=== PATIENT | female | born 1995 | race American Indian/Alaskan Native ===

== ENCOUNTER 2017-05-02 23:41 | Outpatient (CLI) | payer MEDICAID ==
[2017-05-02] MEDS ORDERED: LACTATED RINGERS 500 ML IV ONE (23:47)
[2017-05-03 00:01] VITALS: BP 138/88
== END 2017-05-03 00:20 | disposition home or self-care (01) ==
LOC: TRG 23:41
PROVIDERS: ATTEND Obstetrics & Gynecology
DX: O47.1 False labor at or after 37 completed weeks of gestation (principal); Z3A.37 37 weeks gestation of pregnancy
CPT/HCPCS: 59025; J7120

== ENCOUNTER 2017-05-15 14:54 | Outpatient (CLI) | payer SELFPAY ==
--- NOTE | 2017-05-15 17:53 | Ultrasound Report ---
FINAL REPORT EXAM: US OB LIMITED HISTORY: makenna TECHNIQUE: Grayscale and color doppler ultrasound of the fetus was performed. PRIORS: None. FINDINGS: A single, live intrauterine fetus is present in cephalic presentation with a heart rate of 141 beats per minute. The amniotic fluid index is normal at 12.6 centimeters. IMPRESSION: Amniotic fluid index of 12.6 centimeters.
--- NOTE | 2017-05-15 17:55 | Ultrasound Report ---
FINAL REPORT EXAM: US OB BPP WO NON-STRESS HISTORY: bpp TECHNIQUE: Grayscale and color doppler ultrasound of the fetus was performed for biophysical profile. PRIORS: None. FINDINGS: A single, live intrauterine fetus is present in cephalic presentation with a heart rate of 141 beats per minute. The placenta is anterior in location. The amniotic fluid index is 12.6 centimeters. Estimated gestational age based on LMP is 39 weeks and 1 day with an JOCELINE of 05/21/2017. Biophysical profile score of 8 out of 8 was noted. Scores of 2 out of 2 were given for breathing movements, movements, posterior and tone and qualitative amniotic fluid volume. IMPRESSION: Normal biophysical profile.
[2017-05-15 18:40] LABS: Hematocrit 34.3 % (30.3-42.9); Mean Corpuscular HGB Conc 32 % (30-34); Mean Corpuscular Hemoglobin 29 pg (28-32); Mean Corpuscular Volume 92 fl (79-97); Platelet Count 242 K/mm3 (140-440); Red Blood Count 3.75 M/mm3 (3.65-5.03); Red Cell Distribution Width 15.3 % (13.2-15.2)
[2017-05-15 18:44] LABS: Bacteria,Urine 4+ /HPF (Negative); Bilirubin,Urine NEG (Negative); Blood,Urine NEG (Negative); Color,Urine Yellow (Yellow); Mucus,Urine 2+ /HPF; Urobilinogen,Urine < 2.0 mg/dL (<2.0)
[2017-05-15 19:00] LABS: Alanine Aminotransferase 10 units/L (7-56); Uric Acid 4.3 mg/dL (3.5-7.6)
[2017-05-15 19:25] VITALS: BP 145/86
== END 2017-05-15 19:55 | disposition home or self-care (01) ==
LOC: TRG 14:54
PROVIDERS: ATTEND Obstetrics & Gynecology
DX: O47.1 False labor at or after 37 completed weeks of gestation (principal); Z3A.39 39 weeks gestation of pregnancy
CPT/HCPCS: 36415; 59025; 76815; 76819; 81001; 82565; 83615; 84450; 84460; 84550; 85027; 86592; 86850; 86900; 86901

== ENCOUNTER 2017-05-17 09:07 | Inpatient (IN) | payer MEDICAID, OTHER ==
--- NOTE | 2017-05-17 09:48 | Anesthesia Consultation ---
Anesthesia Consult and Med Hx Date of service: 05/17/17 - Airway Anesthetic Teeth Evaluation: Good ROM Head & Neck: Adequate Mental/Hyoid Distance: Adequate Mallampati Class: Class II Intubation Access Assessment: Probably Good - Pre-Operative Health Status ASA Pre-Surgery Classification: ASA2 Proposed Anesthetic Plan: Epidural, Spinal - Pulmonary Hx Smoking: Yes (2-3 cig/day) Hx Asthma: Yes (EXERCISE INDUCED) - Cardiovascular System Hx Hypertension: No - Central Nervous System Hx Seizures: No Hx Psychiatric Problems: No - Endocrine Hx Renal Disease: No Hx Hypothyroidism: No Hx Hyperthyroidism: No - Hematic Hx Anemia: No Hx Sickle Cell Disease: No - Other Systems Hx Alcohol Use: No
[2017-05-17] MEDS ORDERED: REGLAN IV ONE (09:49)
[2017-05-17] MEDS ORDERED: PHENERGAN PO PRN (09:49)
[2017-05-17] MEDS ORDERED: NARCAN 0.4 MG/1 ML IV PRN ×2 (09:49→12:58)
[2017-05-17] MEDS ORDERED: DILAUDID IV PRN ×2 (09:49)
[2017-05-17] MEDS ORDERED: ZOFRAN IV PRN (09:49)
[2017-05-17] MEDS ORDERED: BICITRA PO ONE (09:49)
[2017-05-17] MEDS ORDERED: PHENERGAN PR PRN (09:49)
[2017-05-17] MEDS ORDERED: PEPCID IV ONE (09:49)
[2017-05-17] MEDS ORDERED: BENADRYL IV PRN (09:49)
--- NOTE | 2017-05-17 09:49 | Anesthesia Day of Surgery ---
Anesthesia Day of Surgery - Day of Surgery Patient Examined: Yes Patient H&P Reviewed: Yes Patient is NPO: Yes
[2017-05-17] MEDS ORDERED: PITOCin/NS 20 UNIT/1000ML DRIP 20 UNITS/1,000 ML BAG IV SCH ×2 (10:00→13:00)
[2017-05-17] MEDS ORDERED: LACTATED RINGERS 1,000 ML IV SCH (10:00)
[2017-05-17] MEDS ORDERED: SODIUM CHLORIDE FLUSH SYRINGE 10 ML IV NR (10:00)
[2017-05-17 11:07] LABS: Basophils # (Auto) 0.1 K/mm3 (0.0-0.1); Basophils % (Auto) 0.4 % (0.0-1.8); Eosinophils # (Auto) 0.1 K/mm3 (0.0-0.4); Eosinophils % (Auto) 0.4 % (0.0-4.3); Hematocrit 33.7 % (30.3-42.9); Hemoglobin 10.8 gm/dl (10.1-14.3); Lymphocytes # (Auto) 1.9 K/mm3 (1.2-5.4); Lymphocytes % (Auto) 14.1 % (13.4-35.0); Mean Corpuscular HGB Conc 32 % (30-34); Mean Corpuscular Hemoglobin 29 pg (28-32); Mean Corpuscular Volume 91 fl (79-97); Monocytes % (Auto) 6.9 % (0.0-7.3); Platelet Count 238 K/mm3 (140-440); Red Cell Distribution Width 15.8 % (13.2-15.2)
[2017-05-17] MEDS ORDERED: NACL 0.9% IR ONE (11:40)
[2017-05-17] MEDS ORDERED: WATER FOR IRRIG STERILE IR ONE (11:40)
--- NOTE | 2017-05-17 11:41 | History and Physical Report ---
History of Present Illness Date of examination: 05/17/17 Date of admission: 05/17/17 09:07 Chief complaint: Repeat C Section History of present illness: Pt is a 22yo BF EDC 05/21/17; EGA 39 3/7 weeks presents for a Repeat C Section. She received late care at [facility] @ 36 weeks , and had a previous C Section. records are available and GBS is Negative. Past History Past Medical History: no pertinent history Past Surgical History: section [employer]GER History: chlamydia, herpes Social history: no significant social history, single - Obstetrical History Expected Date of Delivery: 05/21/17 Actual Gestation: 39 Week(s) 5 Day(s) : 3 Medications and Allergies Allergies Allergy/AdvReac Type Severity Reaction Status Date / Time Iodine and Iodide Containing Allergy Shortness Verified 05/17/17 09:49 Produc of Breath Shellfish Allergy Anaphylaxis Uncoded 05/17/17 09:49 Home Medications Medication Instructions Recorded Confirmed Last Taken Type Ferrous Sulfate [Feosol 325 MG tab] 325 mg PO BID #60 tablet 05/17/17 Unknown Rx HYDROcodone/APAP 5-325 [[place] 1 each PO Q6HR PRN #30 tablet 05/17/17 Unknown Rx 5/325] Ibuprofen [Motrin] 800 mg PO Q8HR PRN #30 tablet 05/17/17 Unknown Rx Vit Calc,Iron,Folic 1 each PO DAILY #30 tablet 05/17/17 Unknown Rx [ Vitamins] Active Meds: Active Medications Cefazolin Sodium (Ancef/Sterile Water 2 Gm/20 Ml) 2 gm IV PREOP NR Stop: 05/17/17 18:00 Diphenhydramine HCl (Benadryl) 12.5 mg IV Q2H PRN PRN Reason: Itching Hydromorphone HCl (Dilaudid) 0.5 mg IV Q4H PRN PRN Reason: breakthrough pain > 7/10 Hydromorphone HCl (Dilaudid) 0.5 mg IV Q15M PRN PRN Reason: Breakthrough Pain Stop: 05/17/17 23:59 Lactated Ringer's (Lactated Ringers) 1,000 mls @ 2,250 mls/hr IV PREOP NICHOLE Stop: 05/18/17 10:27 Oxytocin/Sodium Chloride (Pitocin/Ns 20 Unit/1000ml Drip) 20 units in 1,000 mls @ 0 mls/hr IV TITR NICHOLE Ketorolac Tromethamine (Toradol) 30 mg IV Q6H PRN PRN Reason: Pain, Moderate (4-6) Stop: 05/22/17 09:48 Naloxone HCl (Narcan 0.4 Mg/1 Ml) 0.2 mg IV Q2MIN PRN PRN Reason: Res Rate </= 8 or 02 SAT < 92% Ondansetron HCl (Zofran) 4 mg IV Q8H PRN PRN Reason: Nausea And Vomiting Promethazine HCl (Phenergan) 25 mg PO Q6H PRN PRN Reason: Nausea And Vomiting Promethazine HCl (Phenergan) 25 mg IN Q6H PRN PRN Reason: Nausea And Vomiting Sodium Chloride (Sodium Chloride Flush Syringe 10 Ml) 10 ml IV PRN NR Stop: 05/18/17 09:59 Review of Systems All systems: negative - Physical Exam Breasts: Positive: deferred Cardiovascular: Regular rate Lungs: Positive: Clear to auscultation Abdomen: Positive: normal appearance Genitourinary (Female): Positive: normal external genitalia Uterus: Positive: enlarged Extremities: Positive: normal - Obstetrical FHR: category 1 Results Result Diagrams: 05/18/17 00:32 Abnormal lab results 05/17/17 Range/Units 10:05 WBC 13.7 H (4.5-11.0) K/mm3 RDW 15.8 H (13.2-15.2) % [place] # 1.0 H (0.0-0.8) K/mm3 Seg Neutrophils % 78.2 H (40.0-70.0) % Seg Neutrophils # 10.7 H (1.8-7.7) K/mm3 All other labs normal. Assessment and Plan - Patient Problems (1) 39 weeks gestation of Onset Date: 05/17/17 Current Visit: Yes Status: Resolved Plan to address problem: A: IUP @ 39 3/7 weeks Previous C Section P: Admit to L&D for repeat C Section (2) Previous section Onset Date: 05/17/17 Current Visit: Yes Status: Resolved
[2017-05-17] MEDS ORDERED: ANCEF/STERILE WATER 2 GM/20 ML IV NR (12:00)
[2017-05-17] MEDS ORDERED: ASTRAMORPH PF 10MG/10ML ONE (12:26)
[2017-05-17] MEDS ORDERED: NEO SYNEPHRINE/NS Syringe(OR USE) IV ONE (12:28)
--- NOTE | 2017-05-17 12:56 | Operative Report ---
Operative Report Operative Report: Date of procedure: 05/17/2017 Pre-operative diagnosis: 1. Intrauterine at 39-3/7 weeks 2. Previous Post-operative diagnosis: Same Procedure name(s): Repeat low transverse section Surgeon: Tashi Turcios MD Nps: None Anesthesia: Spinal anesthesia by Dr. Spaulding EBL: 600 mls Findings: A 2631 g female Apgars 8 at 1 minute 9 at 5 minutes. Clear amniotic fluid. Normal uterus. Normal tubes and ovaries bilaterally. Procedure: After the patient was prepped and draped in usual sterile fashion, and after satisfactory level of epidural anesthesia was obtained, the skin knife was used to make a transverse skin incision through the previous skin scar. The incision was excised down to layer of the fascia, which was nicked in the midline and extended laterally using the Bovie cautery. The rectus muscles were dissected off the rectus fascia both superiorly and inferiorly. The rectus bellies in the midline, and the peritoneum was entered under direct visualization. The peritoneal incision was extended superiorly and inferiorly. A bladder flap was created and the bladder blade was then placed. The uterus was scored in a curvilinear linear fashion, entered in the midline revealing clear amniotic fluid. The infant's head was delivered onto the surgical field, and the oropharynx and nasopharynx were bulb suctioned. The rest of the infant's body was delivered, cord was doubly clamped and cut and the infant was handed to the waiting respiratory team. The placenta was manually removed from the uterus, and the uterus removed from its normal anatomical position. After gentle uterine lavage, the incision was inspected and found to be without extensions. It was then closed in 2 layers using 0 Vicryl suture in a running interlocking fashion, the second layer imbricating the first. After good hemostasis was achieved, copious amounts or irrigation was performed, and the gutters were suctioned free of blood and blood clots. The Tisseel sealant was sprayed across the uterine incision. The uterus was then returned to its normal anatomical position, and after excellent hemostasis assured, the peritoneum was re-approximated using 3-0 Vicryl suture in a running interlocking fashion, and then the rectus muscles were re-approximated using 3-0 Vicryl suture in a [id number] configuration. The fascia was then re-approximated using 0 Vicryl suture in running interlocking fashion. The subcutaneous layer was made hemostatic using Bovie cautery, the Tisseel sealant was sprayed across the fascial incision and the skin edges re- approximated using 4-0 Vicryl suture in a sub-cuticular fashion. Patient tolerated the procedure well was transported to recovery in stable condition.
[2017-05-17] MEDS ORDERED: TYLENOL PO PRN (12:58)
[2017-05-17] MEDS ORDERED: TUCKS PAD TP PRN (12:58)
[2017-05-17] MEDS ORDERED: NORCO 5/325 PO PRN (12:58)
[2017-05-17] MEDS ORDERED: LANSINOH TP PRN (12:58)
[2017-05-17] MEDS ORDERED: MILK OF MAGNESIA PO PRN (12:58)
[2017-05-17] MEDS ORDERED: SODIUM CHLORIDE FLUSH SYRINGE 10 ML IV PRN (13:00)
[2017-05-17] MEDS ORDERED: ANCEF/NS 1 GM/50 ML 1 GM/50 ML BAG IV SCH (13:00)
[2017-05-17] MEDS ORDERED: MYLICON PO PRN (13:30)
[2017-05-17] MEDS: TORADOL IV PRN ×2 (14:03→22:27)
[2017-05-17] MEDS: D5LR 1,000 ML IV SCH (18:08)
[2017-05-17] MEDS: ceFAZolin 1 GM in NACL 0.9% 20 ML IV SCH (19:56)
[2017-05-17] MEDS ORDERED: SENOKOT PO PRN (22:00)
[2017-05-18 01:01] LABS: Hematocrit 30.2 % (30.3-42.9); Hemoglobin 9.8 gm/dl (10.1-14.3)
[2017-05-18] MEDS: TORADOL IV PRN (04:16)
[2017-05-18] MEDS: ceFAZolin 1 GM in NACL 0.9% 20 ML IV SCH (04:16)
[2017-05-18] MEDS ORDERED: BOOSTRIX IM ONE (06:00)
[2017-05-18] MEDS ORDERED: M-M-R II VACCINE SUB-Q ONE (06:00)
[2017-05-18] MEDS: D5LR 1,000 ML IV SCH (06:29)
--- NOTE | 2017-05-18 11:09 | Progress Note ---
Assessment and Plan - Patient Problems (1) 39 weeks gestation of Onset Date: 05/17/17 Current Visit: Yes Status: Resolved (2) Previous section Onset Date: 05/17/17 Current Visit: Yes Status: Resolved (3) Status post Onset Date: 05/18/17 Current Visit: Yes Status: Acute Plan to address problem: A: S/P Repeat C Section - POD #1 Doing well Asymptomatic anemia - stable P: Continue RPOC Anticipate discharge in 24-48hrs Subjective - Subjective Date of service: 05/18/17 Principal diagnosis: s/p Repeat C Section - POD #1 Interval history: Pt is feeling well, without complaints. Bleeding improved. Patient reports: appetite normal, voiding normally, pain well controlled, flatus , ambulating normally, no dizzy ambulation, no nauseated [place]: doing well, nursing well Objective - Vital Signs Latest vital signs: Vital Signs Temp Pulse Resp BP BP Pulse Ox 05/18/17 08:00 98.2 F 74 16 141/91 100 05/18/17 04:46 18 05/18/17 04:16 18 05/18/17 04:15 79 20 131/85 98 05/18/17 00:35 98.6 F 82 20 132/89 98 05/17/17 22:57 18 05/17/17 22:27 18 05/17/17 20:45 98.5 F 75 20 136/91 98 05/17/17 16:55 98.5 F 72 20 128/85 96 05/17/17 14:08 98.1 F 76 16 141/90 100 05/17/17 14:03 15 05/17/17 14:00 71 12 145/93 100 05/17/17 13:55 73 16 144/88 100 05/17/17 13:50 70 13 130/83 100 05/17/17 13:45 72 16 139/82 100 05/17/17 13:40 74 21 136/85 100 05/17/17 13:35 69 15 139/81 100 05/17/17 13:30 70 14 135/83 100 05/17/17 13:25 73 15 143/87 100 05/17/17 13:20 75 16 141/86 100 05/17/17 13:15 80 14 143/90 100 05/17/17 13:10 79 15 142/83 100 05/17/17 13:05 97.7 F 79 15 145/84 100 05/17/17 13:00 143/87 100 05/17/17 11:40 81 143/93 05/17/17 11:39 75 100 05/17/17 11:38 88 149/101 Intake and Output 05/17/17 05/18/17 05/18/17 22:59 06:59 14:59 Intake Total 720 1280.833 Output Total 350 2300 Balance 370 -1019.167 Intake: IV 920.833 D5lr 1,000 ml @ 125 mls/ 920.833 hr IV DIRECT NICHOLE Rx#: [id number] Oral 720 360 Output: Urine 350 2300 Indwelling Catheter 350 1300 Void 1000 Other: Total, Intake Amount 240 120 Total, Output Amount 350 400 Voiding Method Indwelling Catheter - Exam Breasts: Present: deferred Cardiovascular: Present: Regular rate Lungs: Present: Clear to auscultation Abdomen: Present: normal appearance, soft Uterus: Present: normal, firm, fundal height below umbilicus Extremities: Present: normal Incision: Present: normal, dry, intact, dressed - Labs Labs: Abnormal lab results 05/17/17 05/18/17 Range/Units 10:05 00:32 WBC 13.7 H (4.5-11.0) K/mm3 Hgb 9.8 L (10.1-14.3) gm/dl Hct 30.2 L (30.3-42.9) % RDW 15.8 H (13.2-15.2) % [place] # 1.0 H (0.0-0.8) K/mm3 Seg Neutrophils % 78.2 H (40.0-70.0) % Seg Neutrophils # 10.7 H (1.8-7.7) K/mm3 Laboratory Tests 05/17/17 05/17/17 05/17/17 10:05 10:05 10:05 WBC 13.7 H RBC 3.70 Hgb 10.8 Hct 33.7 MCV 91 MCH 29 MCHC 32 RDW 15.8 H Plt Count 238 Lymph % (Auto) 14.1 [place] % (Auto) 6.9 Eos % (Auto) 0.4 Baso % (Auto) 0.4 Lymph # 1.9 [place] # 1.0 H Eos # 0.1 Baso # 0.1 Seg Neutrophils % 78.2 H Seg Neutrophils # 10.7 H RPR Nonreactive Blood Type B POSITIVE Antibody Screen Negative 05/18/17 00:32 WBC RBC Hgb 9.8 L Hct 30.2 L MCV MCH MCHC RDW Plt Count Lymph % (Auto) [place] % (Auto) Eos % (Auto) Baso % (Auto) Lymph # [place] # Eos # Baso # Seg Neutrophils % Seg Neutrophils # RPR Blood Type Antibody Screen
[2017-05-18] MEDS: PERCOCET 5/325 PO PRN ×2 (16:45→22:32)
[2017-05-18] MEDS ORDERED: APRESOLINE IV ONE (19:00)
[2017-05-18] MEDS: NORMODYNE PO SCH (22:32)
[2017-05-19] MEDS: PERCOCET 5/325 PO PRN ×3 (07:52→19:40)
--- NOTE | 2017-05-19 09:38 | Progress Note ---
Assessment and Plan - Patient Problems (1) 39 weeks gestation of Onset Date: 05/17/17 Current Visit: Yes Status: Resolved (2) Previous section Onset Date: 05/17/17 Current Visit: Yes Status: Resolved (3) Status post Onset Date: 05/18/17 Current Visit: Yes Status: Acute Plan to address problem: A: S/P Repeat C Section - POD #2 Doing well Asymptomatic anemia - stable Hypertension - uncontrolled on Labetolol 200mg BID P: Continue RPOC Will add Procardia XL 30mg QD Anticipate discharge in 24hrs if remains stable. Subjective - Subjective Date of service: 05/19/17 Principal diagnosis: s/p Repeat C Section - POD #2 Interval history: Pt is feeling well, without complaints. Bleeding improved.Tolerating a reg diet without nausea or vomiting. Patient reports: appetite normal, voiding normally, pain well controlled, flatus , ambulating normally : doing well, nursing well Objective - Vital Signs Latest vital signs: Vital Signs Temp Pulse Resp BP BP Pulse Ox 05/19/17 09:16 88 148/94 05/19/17 08:25 89 100 05/19/17 08:24 99.1 F 88 18 148/94 99 05/19/17 00:45 18 137/84 91 05/18/17 22:32 156/96 05/18/17 22:27 153/96 05/18/17 22:15 154/98 05/18/17 22:00 147/95 05/18/17 21:45 155/91 05/18/17 21:30 151/97 05/18/17 21:15 83 150/91 97 05/18/17 21:03 78 142/94 05/18/17 21:00 79 141/86 100 05/18/17 20:59 81 136/94 100 05/18/17 20:49 77 144/96 97 05/18/17 20:45 77 18 144/96 100 05/18/17 18:30 79 13 155/104 05/18/17 16:43 98.2 F 82 20 156/98 100 05/18/17 16:42 98.2 F 74 20 156/98 100 Intake and Output 05/18/17 05/19/17 05/19/17 22:59 06:59 14:59 Intake Total 480 480 Balance 480 480 Intake: Oral 480 480 Other: Total, Intake Amount 240 240 # Voids Void 1 1 - Exam Breasts: Present: deferred Cardiovascular: Present: Regular rate Lungs: Present: Clear to auscultation Abdomen: Present: normal appearance, soft Uterus: Present: normal, firm, fundal height below umbilicus Extremities: Present: normal Incision: Present: normal, dry, intact
[2017-05-19] MEDS: PRENATAL VITAMIN PO SCH (10:17)
[2017-05-19] MEDS: FEOSOL PO SCH (10:17)
[2017-05-19] MEDS: NORMODYNE PO SCH ×2 (10:17→21:43)
[2017-05-19] MEDS: PROCARDIA XL PO SCH (12:13)
[2017-05-19] MEDS: MOTRIN PO PRN ×2 (12:13→19:40)
[2017-05-20] MEDS: PERCOCET 5/325 PO PRN ×2 (00:57→05:46)
--- NOTE | 2017-05-20 09:04 | Progress Note ---
Assessment and Plan - Patient Problems (1) 39 weeks gestation of Onset Date: 05/17/17 Current Visit: Yes Status: Resolved (2) Previous section Onset Date: 05/17/17 Current Visit: Yes Status: Resolved (3) Status post Onset Date: 05/18/17 Current Visit: Yes Status: Acute Plan to address problem: A: S/P Repeat C Section - POD #3 Doing well Asymptomatic anemia - stable Hypertension - controlled on Labetolol 200mg BID and procardia XL 30mg QD P: May go home today Subjective - Subjective Date of service: 05/20/17 Principal diagnosis: s/p Repeat C Section - POD #3 Interval history: Pt is feeling well without complaints. Tolerating a reg diet without nausea or vomiting, ambulating and voiding without difficulty. Denies headaches or blurred vision. Patient reports: appetite normal, voiding normally, pain well controlled, flatus , ambulating normally, no dizzy ambulation, no nauseated [place]: doing well, nursing well Objective - Vital Signs Latest vital signs: Vital Signs Temp Pulse Resp BP BP 05/19/17 23:40 97.1 F L 75 20 117/81 05/19/17 21:43 80 131/86 05/19/17 16:00 98.7 F 86 20 134/82 05/19/17 10:20 91 H 152/102 05/19/17 10:17 91 H 152/102 05/19/17 09:16 88 148/94 Intake and Output 05/19/17 05/20/17 05/20/17 22:59 06:59 14:59 Intake Total 600 240 Balance 600 240 Intake: Oral 360 Intake, Free Water 240 240 Other: Total, Intake Amount 120 # Voids Void 1 2 Vital Signs - 12hr 05/20/17 05/20/17 09:18 10:54 Temperature 97.7 F Pulse Rate 78 78 Respiratory 18 Rate Blood Pressure 136/80 136/80 O2 Sat by Pulse 99 Oximetry - Exam Cardiovascular: Present: Regular rate Lungs: Present: Clear to auscultation Abdomen: Present: normal appearance, soft Uterus: Present: normal, firm, fundal height below umbilicus Extremities: Present: normal Incision: Present: normal, dry, intact
[2017-05-20] MEDS: FEOSOL PO SCH (10:54)
[2017-05-20] MEDS: PRENATAL VITAMIN PO SCH (10:54)
[2017-05-20] MEDS: NORMODYNE PO SCH (10:54)
[2017-05-20] MEDS: PROCARDIA XL PO SCH (10:55)
--- NOTE | 2017-05-20 12:40 | Discharge Summary ---
Providers - Providers Date of Admission: 05/17/17 09:07 Date of discharge: 05/20/17 Attending physician: JO GOLDSTEIN Primary care physician: JO GOLDSTEIN Hospitalization Reason for admission: section, IUP at term Delivery: Procedure: section, repeat low transverse Laceration: none Incision: normal, dry, intact complications: none (elevated BP's) Discharge diagnosis: IUP at term delivered, other (Hypertension - controlled) [place] baby: female Hospital course: Pt is a 22yo BF EDC 05/21/17; EGA 39 / weeks who presented for a Repeat C Section. She received late care at [facility] @ 36 weeks , and had a previous C Section. She underwent an uncomplicated Repeat C Section and tolerated the procedure well. Post operative course was significant for elevated BP's which were controlled with Labetolol 200mg BID and ProcardiaXL 30mg QD. Today she is feeling well without complaints, tolerating a reg diet without nausea or vomiting, ambulating and voiding without difficulty, and thus will be discharged to home in stable condition with plans to follow up in the office in 1 week for BP check. Condition at discharge: Good Disposition: DC-01 TO HOME OR SELFCARE - Discharge Diagnoses (1) 39 weeks gestation of Status: Resolved (2) Previous section Status: Resolved (3) Status post Status: Acute Plan - Discharge Medications Prescriptions: Ferrous Sulfate [Feosol 325 MG tab] 325 mg PO BID #60 tablet HYDROcodone/APAP 5-325 [[place] 5/325] 1 each PO Q6HR PRN #30 tablet PRN Reason: Pain Ibuprofen [Motrin] 800 mg PO Q8HR PRN #30 tablet PRN Reason: Moder Pain Unrelieved By [place] Labetalol [Normodyne TAB] 200 mg PO BID #60 tablet NIFEdipine XL [Procardia Xl] 30 mg PO QDAY #30 tablet Vit Calc,Iron,Folic [ Vitamins] 1 each PO DAILY #30 tablet - Provider Discharge Summary Activity: routine, no sex for 6 weeks, no heavy lifting 4 weeks, no strenuous exercise Diet: routine Instructions: routine Additional instructions: [] Smoking cessation referral if applicable(refer to patient education folder for contact #) [] Refer to [facility] Booklet Call your doctor immediately for: * Fever > 100.5 * Heavy vaginal bleeding ( >1 pad per hour) * Severe persistent headache * Shortness of breath * Reddened, hot, painful area to leg or breast * Drainage or odor from incision. * Keep incision clean and dry at all times and follow doctor's instructions regarding bathing/showering Keep appt for BP check in 1 week - Follow up plan Follow up: JO GOLDSTEIN MD [Primary Care Provider] - 7 Days CARMENCITA LY CNM [Advanced Practice Nurse] - 7 Days
[2017-05-20 13:48] VITALS: BP 126/82
== END 2017-05-20 14:40 | disposition home or self-care (01) | DRG 766 ==
LOC: APU 09:07 → OB 15:53
PROVIDERS: ADMIT Obstetrics & Gynecology; ATTEND Obstetrics & Gynecology
PROC: 10D00Z1 Extraction of Products of Conception, Low, Open Approach (ICD-10-PCS; principal; 2017-05-17)
PROC: 3E0234Z Introduction of Serum, Toxoid and Vaccine into Muscle, Percutaneous Approach (ICD-10-PCS; 2017-05-18)
DX: O34.211 Maternal care for low transverse scar from previous cesarean delivery (principal); Z3A.39 39 weeks gestation of pregnancy; Z37.0 Single live birth; Z23 Encounter for immunization; Z91.041 Radiographic dye allergy status; Z91.013 Allergy to seafood; O99.334 Smoking (tobacco) complicating childbirth; F17.210 Nicotine dependence, cigarettes, uncomplicated; O99.52 Diseases of the respiratory system complicating childbirth; J45.909 Unspecified asthma, uncomplicated
CPT/HCPCS: 36415; 85014; 85018; 85025; 86592; 86850; 86900; 86901; 99211; G0463; J0360; J0690; J1885; J2274; J2370; J2590; J2765; J7120; J7121

== ENCOUNTER 2018-10-06 19:33 | Inpatient (IN) | payer MEDICAID ==
--- NOTE | 2018-10-06 20:07 | Event Note ---
ED Screening Note ED Screening Note: hx htn not taking meds labetolol and nifedipine pmh asthma polycystic ovarian disease htn lmp 8-16 cc headache and inc bp for 2 weeks This initial assessment/diagnostic orders/clinical plan/treatment(s) is/are subject to change based on patients health status, clinical progression and re- assessment by fellow clinical providers in the ED. Further treatment and workup at subsequent clinical providers discretion. Patient/guardian urged not to elope from the ED as their condition may be serious if not clinically assessed and managed. Initial orders include: basic labs rx
[2018-10-06 20:28] LABS: Hematocrit 36.4 % (30.3-42.9); Hemoglobin 11.6 gm/dl (10.1-14.3); Mean Corpuscular HGB Conc 32 % (30-34); Mean Corpuscular Volume 84 fl (79-97); Platelet Count 363 K/mm3 (140-440); Red Blood Count 4.34 M/mm3 (3.65-5.03); Red Cell Distribution Width 15.7 % (13.2-15.2)
[2018-10-06 21:06] LABS: BUN/Creatinine Ratio 9; Blood Urea Nitrogen 9 mg/dL (7-17); Calcium 9.8 mg/dL (8.4-10.2); Hemolysis Index 4
[2018-10-06] MEDS ORDERED: NORMODYNE IV ONE (21:43)
--- NOTE | 2018-10-06 21:48 | Emergency Department Report ---
ED Headache HPI - General Chief Complaint: High BP Stated Complaint: DIZZY, SEE SPOTS Time Seen by Provider: 10/06/18 20:05 Source: patient Exam Limitations: no limitations - History of Present Illness Initial Comments: 23 yo F presents to ED with headache x 2 weeks. Denies nausea, vomiting, extremity numbness or weakness. States took her BP at [facility] and it was 190s/130s. Pt reports hx of HTN with last 1 yr ago. Was on labetalol and nifedipine at that time. States it has been 1 yr since she has taken any BP meds. Also reports chest pain, SOB. LMP 1 week ago. Timing/Duration: other (2 months) Quality: moderate Head Injury Location: temporal Associated Symptoms: denies: nausea/vomiting Allergies/Adverse Reactions: Allergies Iodine and Iodide Containing Produc Allergy (Verified 05/17/17 09:49) Shortness of Breath Shellfish Allergy (Uncoded 05/17/17 09:49) Anaphylaxis Home Medications: Ambulatory Orders Ferrous Sulfate [Feosol 325 MG tab] 325 mg PO BID #60 tablet 05/17/17 HYDROcodone/APAP 5-325 [[place] 5/325] 1 each PO Q6HR PRN #30 tablet 05/17/17 Ibuprofen [Motrin] 800 mg PO Q8HR PRN #30 tablet 05/17/17 Vit Calc,Iron,Folic [ Vitamins] 1 each PO DAILY #30 tablet 05/17/17 Labetalol [Labetalol 200mg TAB] 200 mg PO BID #60 tablet 05/20/17 NIFEdipine XL [Procardia Xl] 30 mg PO QDAY #30 tablet 05/20/17 ED Review of Systems ROS: Stated complaint: DIZZY, SEE SPOTS Other details as noted in HPI Comment: All other systems reviewed and negative Respiratory: shortness of breath Cardiovascular: chest pain Gastrointestinal: abdominal pain. denies: nausea, vomiting Neurological: headache. denies: weakness, numbness ED Past Medical Hx - Past Medical History Hx Hypertension: No Hx Congestive Heart Failure: No Hx Diabetes: No Hx Deep Vein Thrombosis: No Hx Renal Disease: No Hx Sickle Cell Disease: No Hx Seizures: No Hx Asthma: Yes (EXERCISE INDUCED) Hx COPD: No Hx HIV: No Additional medical history: PCO - Surgical History Additional Surgical History: X2 - Social History Smoking Status: Current Every Day Smoker Substance Use Type: Alcohol - Medications Home Medications: Home Medications Medication Instructions Recorded Confirmed Last Taken Type Ferrous Sulfate [Feosol 325 MG tab] 325 mg PO BID #60 tablet 05/17/17 Unknown Rx HYDROcodone/APAP 5-325 [[place] 1 each PO Q6HR PRN #30 tablet 05/17/17 Unknown Rx 5/325] Ibuprofen [Motrin] 800 mg PO Q8HR PRN #30 tablet 05/17/17 Unknown Rx Vit Calc,Iron,Folic 1 each PO DAILY #30 tablet 05/17/17 Unknown Rx [ Vitamins] Labetalol [Labetalol 200mg TAB] 200 mg PO BID #60 tablet 05/20/17 Unknown Rx NIFEdipine XL [Procardia Xl] 30 mg PO QDAY #30 tablet 05/20/17 Unknown Rx ED Physical Exam - General Limitations: No Limitations General appearance: alert, in no apparent distress - Head Head exam: Present: atraumatic, normocephalic - Eye Eye exam: Present: normal appearance, PERRL, EOMI - ENT ENT exam: Present: mucous membranes moist - Neck Neck exam: Present: normal inspection - Respiratory Respiratory exam: Present: normal lung sounds bilaterally. Absent: respiratory distress - Cardiovascular Cardiovascular Exam: Present: regular rate, normal rhythm - GI/Abdominal GI/Abdominal exam: Present: soft. Absent: distended, tenderness - Extremities Exam Extremities exam: Present: normal inspection - Neurological Exam Neurological exam: Present: alert, oriented X3 - Psychiatric Psychiatric exam: Present: normal affect, normal mood - Skin Skin exam: Present: warm, dry, intact, normal color ED Course Vital Signs 10/06/18 10/06/18 10/06/18 20:07 21:30 22:00 Temperature 98.9 F 99.2 F Pulse Rate 122 H 95 H 96 H Respiratory 18 20 Rate Blood Pressure 200/132 185/134 Blood Pressure 186/128 [Left] O2 Sat by Pulse 99 100 Oximetry 10/07/18 10/07/18 00:10 00:25 Temperature Pulse Rate 95 H 87 Respiratory 19 Rate Blood Pressure 193/125 Blood Pressure 193/125 [Left] O2 Sat by Pulse 100 Oximetry ED Medical Decision Making - Lab Data Result diagrams: 10/06/18 20:13 10/06/18 20:13 - EKG Data -: EKG Interpreted by Ks EKG shows normal: sinus rhythm, axis, intervals, QRS complexes, ST-T waves Rate: normal - EKG Data Interpretation: no acute changes - Radiology Data Radiology results: report reviewed, image reviewed - Medical Decision Making 23 yo F presented to ED with uncontrolled HTN. Reports HERNANDEZ, chest pain, and SOB. No neuro deficits on exam. CT Head is normal. Pt reports induced HTN, however, test is negative. CXR normal. D-dimer was found to be elevated, so V/Q scan obtained due to IV contrast allergy. V/Q scan showed moderate V/Q mismatch in the right apex. Pt denies chest pain at this time, but states she intermittently feels SOB. O2 sats have been normal. Pt initially tachycardic upon arrival, however, tachycardia improved prior to medication administration. Unable to control BP w/ hydralazine and labetalol, so cardene drip ordered. Pt admitted to hospitalist, Dr Schmid, for further management. - Differential Diagnosis uncontrolled HTN, ACS, PE, PIH Critical Care Time: Yes Critical care time in (mins) excluding proc time.: 35 Critical care attestation.: If time is entered above; I have spent that time in minutes in the direct care of this critically ill patient, excluding procedure time. Critical Care Time: 35 min ED Disposition Clinical Impression: Pulmonary embolism, Hypertensive emergency Disposition: DC-09 OP ADMIT IP TO THIS HOSP Is pt being admited?: Yes Condition: Stable Instructions: Hypertension (ED) Referrals: PRIMARY CARE, [Primary Care Provider] - 3-5 Days Time of Disposition: 01:17
[2018-10-06 22:15] LABS: INR 1.11 (0.87-1.13); Partial Thromboplastin Time 26.1 Sec. (24.2-36.6)
--- NOTE | 2018-10-06 23:02 | XRay Report ---
CHEST 2 VIEWS INDICATION: cp with htn. COMPARISON: None. FINDINGS: Support devices: None. Heart: Within normal limits. Lungs/Pleura: No acute air space or interstitial disease. Prominent hilar adenopathy right greater th an left. No significant pleural effusion. IMPRESSION: Prominent hilar adenopathy. This is an unknown finding, further evaluation could be perf ormed with contrast-enhanced CT of the chest. Signer Name: Josué Encinas MD Signed: 10/06/2018 10:58 PM Workstation Name: [id number]
[2018-10-06 23:49] LABS: Bacteria,Urine 1+ /HPF (Negative); Bilirubin,Urine NEG (Negative); Blood,Urine NEG (Negative); Color,Urine Yellow (Yellow); Mucus,Urine 3+ /HPF
--- NOTE | 2018-10-07 00:01 | Cat Scan Report ---
CT head/brain wo con INDICATION: headache. TECHNIQUE: All CT scans at this location are performed using the following dose modulation technique: Automated exposure control. CONTRAST: None. COMPARISON: None available. FINDINGS: The ventricular system is appropriate in size and configuration without midline shift. Nega tive for mass, stroke or hemorrhage. Imaged portions of the paranasal sinuses are clear. IMPRESSION: Negative CT brain without contrast. Signer Name: Josué Encinas MD Signed: 10/06/2018 11:57 PM Workstation Name: [id number]
--- NOTE | 2018-10-07 00:11 | Nuclear Medicine Report ---
Nuclear medicine ventilation/perfusion lung imaging. 10/06/2018. HISTORY: Chest pain. Tracers: Xenon-133 gas 22 mCi inhalation and technetium 99m MAA 5.8 mCi IV injection. COMPARISON: Chest x-ray 10/06/2018. FINDINGS: Ventilation is homogeneous. Negative for significant tracer retention. Perfusion imaging de monstrates moderate decreased perfusion at the right upper lobe. Chest x-ray demonstrates no abnormal ity in this region. IMPRESSION: Moderate ventilation/perfusion mismatch at the right apex. The findings are of an interme diate probability for pulmonary embolus. Signer Name: Josué Encinas MD Signed: 10/07/2018 12:07 AM Workstation Name: [id number]
[2018-10-07] MEDS ORDERED: APRESOLINE IV ONE (00:16)
[2018-10-07] MEDS ORDERED: HEPARIN 10,000 UNITS/10 ML IV ONE (00:33)
[2018-10-07] MEDS ORDERED: HEPARIN/ 0.45% NACL-25,000 UNIT/500 ML 25,000 UNIT/500 ML BAG IV SCH (01:00)
[2018-10-07] MEDS ORDERED: K-DUR PO ONE (01:17)
[2018-10-07] MEDS ORDERED: ZOFRAN IV PRN (01:56)
[2018-10-07] MEDS ORDERED: SODIUM CHLORIDE FLUSH SYRINGE 10 ML IV PRN (01:56)
[2018-10-07] MEDS ORDERED: MORPHINE IV PRN (01:56)
[2018-10-07] MEDS ORDERED: CARDENE 50 MG in NACL 0.9% 250ML 230 ML IV SCH (02:00)
--- NOTE | 2018-10-07 02:02 | History and Physical Report ---
History of Present Illness Date of examination: 10/07/18 History of present illness: 23-year-old history of hypertension during one year ago, noncompliant with her medication over the last 1 year, also has a history of asthma comes emergency room with complaints of right-sided headache and puffiness of her eyes 2 weeks. Today she was at [facility], she felt lightheaded, she checked her blood pressure was 190/130, she comes emergency room for further evaluation eview Of Systems: Constitutional: no weight loss, fever, chills Ears, eyes, nose, mouth and throat: no nasal congestion, no nasal discharge, no sinus pressure, blurry vision, diplopia Neck: No neck pain or rigidity. Cardiovascular: No palpitations, chest pain Respiratory: No shortness of breath, cough Gastrointestinal: No hematochezia, abdominal pain Genitourinary : no dysuria, frequency , hematuria Musculoskeletal: no muscle ache , joint pain Integumentary: no rash, no pruritis Neurological: no parathesias, focal weakness Endocrine: no cold or heat intolerance, no polyuria or polydipsia Hematologic/Lymphatic: no easy bruising, no easy bleeding, no gland swelling Allergic/Immunologic: no urticaria, no angioedema. PAST MEDICAL HISTORY: hypertension PAST SURGICAL HISTORY:c/section x2 FAMILY HISTORY:hypertension, diabetes SOCIAL HISTORY: Denies tobacco, drugs, alcohol Medications and Allergies Allergies Allergy/AdvReac Type Severity Reaction Status Date / Time Iodine and Iodide Containing Allergy Shortness Verified 05/17/17 09:49 Produc of Breath Shellfish Allergy Anaphylaxis Uncoded 05/17/17 09:49 Home Medications Medication Instructions Recorded Confirmed Last Taken Type Ferrous Sulfate [Feosol 325 MG tab] 325 mg PO BID #60 tablet 05/17/17 10/07/18 Unknown Rx HYDROcodone/APAP 5-325 [[place] 1 each PO Q6HR PRN #30 tablet 05/17/17 10/07/18 Unknown Rx 5/325] Ibuprofen [Motrin] 800 mg PO Q8HR PRN #30 tablet 05/17/17 10/07/18 Unknown Rx Vit Calc,Iron,Folic 1 each PO DAILY #30 tablet 05/17/17 10/07/18 Unknown Rx [ Vitamins] Labetalol [Labetalol 200mg TAB] 200 mg PO BID #60 tablet 05/20/17 10/07/18 Unknown Rx NIFEdipine XL [Procardia Xl] 30 mg PO QDAY #30 tablet 05/20/17 10/07/18 Unknown Rx Active Meds: Active Medications Acetaminophen (Tylenol) 650 mg PO Q4H PRN PRN Reason: Pain MILD(1-3)/Fever >100.5/HERNANDEZ Heparin Sodium/Sodium Chloride (Heparin/ 0.45% Nacl-25,000 Unit/500 Ml) 25,000 unit in 500 mls @ 26 mls/hr IV TITR NICHOLE; Protocol Last Admin: 10/07/18 01:15 Dose: 1,300 units/hr, 26 mls/hr Documented by: Nicardipine HCl 50 mg/ Sodium (Chloride) 250 mls @ 25 mls/hr IV TITR NICHOLE; Pr otocol Morphine Sulfate (Morphine) 2 mg IV Q4H PRN PRN Reason: Pain, Moderate (4-6) Ondansetron HCl (Zofran) 4 mg IV Q4H PRN PRN Reason: Nausea And Vomiting Sodium Chloride (Sodium Chloride Flush Syringe 10 Ml) 10 ml IV BID NICHOLE Sodium Chloride (Sodium Chloride Flush Syringe 10 Ml) 10 ml IV PRN PRN PRN Reason: LINE FLUSH Exam - Physical Exam Narrative exam: General Apperance: The patient lying in bed, breathing comfortable HEENT: Normocephalic, atraumatic. Pupils equally round and reactive to light, EOMI, no sclericterus or JVD or thyromegaly or nodule. , no carotid bruit, mucous membranes moist, no exudate or erythema Heart: S1-S2, regular is rhythm Lungs: Clear to auscultation bilaterally, breathing comfortable Abdomen: Positive bowel sounds, soft, distended, nontender, difficult to assess for organomegaly Extremities: no edema no cyanosis clubbing Skin: no rash, nodule, warm and dry Neuro: cranial nerves 2-12 intact, speech is fluent, motor/sensory intact - Constitutional Vitals: Temp Pulse Resp BP Pulse Ox 99.2 F 87 19 193/125 100 10/06/18 21:30 10/07/18 00:25 10/07/18 00:10 10/07/18 00:25 10/07/18 00:10 Results - Labs CBC & Chem 7: 10/06/18 20:13 10/06/18 20:13 Labs: Abnormal lab results 10/06/18 10/06/18 10/06/18 Range/Units 20:13 20:13 21:47 MCH 27 L (28-32) pg RDW 15.7 H (13.2-15.2) % D-Dimer 295.98 H (0-234) ng/mlDDU Potassium 3.5 L (3.6-5.0) mmol/L Glucose 119 H (65-100) mg/dL Urine WBC (Auto) (0.0-6.0) /HPF U Epithel Cells (Auto) (0-13.0) /HPF 10/06/18 Range/Units 23:30 MCH (28-32) pg RDW (13.2-15.2) % D-Dimer (0-234) ng/mlDDU Potassium (3.6-5.0) mmol/L Glucose (65-100) mg/dL Urine WBC (Auto) 22.0 H (0.0-6.0) /HPF U Epithel Cells (Auto) 25.0 H (0-13.0) /HPF - Imaging and Cardiology Chest x-ray: report reviewed CT Scan - head: report reviewed Assessment and Plan v/q intermed probability Assessment Hypertensive urgency Intermediate probability for PE Headache Medical noncompliance Plan Admit to medicine Continue carene drip, heparin drip Check doppler of lower extremities Consult critical care, monitor hemoglobin IV morphine, DVT prphalaxis Specimen contaminated, repeat urinalysis
[2018-10-07] MEDS: TYLENOL PO PRN ×3 (02:55→19:44)
[2018-10-07] MEDS ORDERED: TYLENOL ONE (02:58)
[2018-10-07 07:15] LABS: Bilirubin,Urine NEG (Negative); Blood,Urine NEG (Negative); Color,Urine Straw (Yellow); Protein,Urine <15 mg/dL mg/dL (Negative); Urobilinogen,Urine < 2.0 mg/dL (<2.0)
--- NOTE | 2018-10-07 08:38 | Event Note ---
Date: 10/07/18 Pt seen and examined. Admitted today. Reviewed labs. Will follow the recommendation of admitting physician Will add KCL for hypokalemia.
[2018-10-07] MEDS: SODIUM CHLORIDE FLUSH SYRINGE 10 ML IV SCH (09:30)
--- NOTE | 2018-10-07 10:54 | Vascular Lab Report ---
DUPLEX DOPPLER LOWER EXTREMITY VEINS, BILATERAL INDICATION: eval for dvt. TECHNIQUE: Duplex doppler imaging was performed through the veins of both lower extremities using venous lucero austyn and other maneuvers. COMPARISON: None available. FINDINGS: Right Common Femoral vein: Negative. Right Superficial Femoral vein: Negative. Right Popliteal vein: Negative. Right Calf veins: Negative. Left Common Femoral vein: Negative. Left Superficial Femoral vein: Negative. Left Popliteal vein: Negative. Left Calf veins: Negative. Additional findings: None. IMPRESSION: 1. No sonographic evidence for DVT in either lower extremity. Signer Name: Manuel Jasso MD Signed: 10/07/2018 10:50 AM Workstation Name: [id number]
--- NOTE | 2018-10-07 11:11 | Consultation ---
History of Present Illness - Reason for Consult Consult date: 10/07/18 Hypertenisve Emergency - History of Present Illness 23 y/o female presented to the ED with shortness of breath and headache. Found to be in hypertensive emergency and started on cardene drip. Concern for PE but patient has iodine allergy so V/Q done showing intermediate probability. Started empirically on heparin drip. Medications and Allergies Allergies Allergy/AdvReac Type Severity Reaction Status Date / Time Iodine and Iodide Containing Allergy Shortness Verified 05/17/17 09:49 Produc of Breath Shellfish Allergy Anaphylaxis Uncoded 05/17/17 09:49 Home Medications Medication Instructions Recorded Confirmed Last Taken Type Vit Calc,Iron,Folic 1 each PO DAILY #30 tablet 05/17/17 10/07/18 Unknown Rx [ Vitamins] Apixaban [Eliquis] 5 mg PO BID #60 tablet 10/08/18 Unknown Rx Ferrous Sulfate [Feosol 325 MG tab] 325 mg PO BID #60 tablet 10/08/18 Unknown Rx Labetalol [Labetalol 200mg TAB] 200 mg PO BID #60 tablet 10/08/18 Unknown Rx NIFEdipine XL [Procardia Xl] 30 mg PO QDAY #30 tablet 10/08/18 Unknown Rx Active Meds: Active Medications Acetaminophen (Tylenol) 650 mg PO Q4H PRN PRN Reason: Pain MILD(1-3)/Fever >100.5/HERNANDEZ Last Admin: 10/07/18 09:24 Dose: 650 mg Documented by: Heparin Sodium/Sodium Chloride (Heparin/ 0.45% Nacl-25,000 Unit/500 Ml) 25,000 unit in 500 mls @ 26 mls/hr IV TITR NICHOLE; Protocol Last Titration: 10/07/18 08:45 Dose: 1,150 units/hr, 23 mls/hr Documented by: Labetalol HCl (Normodyne) 200 mg PO BID NICHOLE Morphine Sulfate (Morphine) 2 mg IV Q4H PRN PRN Reason: Pain, Moderate (4-6) Last Admin: 10/07/18 06:05 Dose: 2 mg Documented by: Nifedipine (Procardia Xl) 30 mg PO QDAY NICHOLE Ondansetron HCl (Zofran) 4 mg IV Q4H PRN PRN Reason: Nausea And Vomiting Potassium Chloride (K-Dur) 30 meq PO QDAY [facility] Sodium Chloride (Sodium Chloride Flush Syringe 10 Ml) 10 ml IV BID NICHOLE Sodium Chloride (Sodium Chloride Flush Syringe 10 Ml) 10 ml IV PRN PRN PRN Reason: LINE FLUSH Exam - Constitutional Vitals: Temp Pulse Resp BP Pulse Ox 98.2 F 94 H 16 140/99 99 10/07/18 08:00 10/07/18 10:00 10/07/18 10:00 10/07/18 06:41 10/07/18 08:35 Results - Labs CBC & Chem 7: 10/08/18 04:07 10/08/18 04:07 Labs: Abnormal lab results 10/06/18 10/06/18 10/06/18 Range/Units 20:13 20:13 21:47 MCH 27 L (28-32) pg RDW 15.7 H (13.2-15.2) % D-Dimer 295.98 H (0-234) ng/mlDDU Heparin Anti-Xa Level (0.3-0.7) U.I./ml Potassium 3.5 L (3.6-5.0) mmol/L Glucose 119 H (65-100) mg/dL Urine WBC (Auto) (0.0-6.0) /HPF U Epithel Cells (Auto) (0-13.0) /HPF 10/06/18 10/07/18 Range/Units 23:30 05:58 MCH (28-32) pg RDW (13.2-15.2) % D-Dimer (0-234) ng/mlDDU Heparin Anti-Xa Level 1.10 H (0.3-0.7) U.I./ml Potassium (3.6-5.0) mmol/L Glucose (65-100) mg/dL Urine WBC (Auto) 22.0 H (0.0-6.0) /HPF U Epithel Cells (Auto) 25.0 H (0-13.0) /HPF - Imaging and Cardiology Chest x-ray: image reviewed (enlarged PA's but otherwise clear) Assessment and Plan 23 y/o female with hypertensive emergency. 1. Off cardene now. Has known HTN. Restart home medications. 2. NOt on control, no other risk factors for PE. Since unable to do CTA, if dopplers negative will stop heparin drip. 3. Should be stable for transfer out of the unit.
[2018-10-07] MEDS: NORMODYNE PO SCH ×2 (11:50→22:06)
[2018-10-07] MEDS: PROCARDIA XL PO SCH (11:50)
[2018-10-07 12:14] LABS: BUN/Creatinine Ratio 11; Blood Urea Nitrogen 9 mg/dL (7-17); Calcium 9.4 mg/dL (8.4-10.2); Hemolysis Index 5
[2018-10-08] MEDS: TYLENOL PO PRN ×2 (01:29→07:52)
[2018-10-08 05:04] LABS: BUN/Creatinine Ratio 9; Blood Urea Nitrogen 8 mg/dL (7-17); Calcium 9.4 mg/dL (8.4-10.2); Hemolysis Index 2
[2018-10-08 05:44] LABS: Basophils # (Auto) 0.1 K/mm3 (0.0-0.1); Basophils % (Auto) 0.9 % (0.0-1.8); Eosinophils # (Auto) 0.2 K/mm3 (0.0-0.4); Eosinophils % (Auto) 2.7 % (0.0-4.3); Hematocrit 33.4 % (30.3-42.9); Hemoglobin 10.8 gm/dl (10.1-14.3); Lymphocytes # (Auto) 1.5 K/mm3 (1.2-5.4); Lymphocytes % (Auto) 22.1 % (13.4-35.0); Mean Corpuscular HGB Conc 32 % (30-34); Mean Corpuscular Volume 83 fl (79-97); Monocytes % (Auto) 14.6 % (0.0-7.3); Platelet Count 305 K/mm3 (140-440); Red Blood Count 4.05 M/mm3 (3.65-5.03); Red Cell Distribution Width 15.8 % (13.2-15.2)
--- NOTE | 2018-10-08 08:59 | Progress Note ---
Subjective Date of service: 10/08/18 Principal diagnosis: Hypertensive emergency, PE Interval history: No more Headache. No chest pain Objective - Exam Narrative Exam: Hypertensive urgency Intermediate probability for PE Headache - resolved Hypokalemia - resolved Medical noncompliance Plan Continue cardene drip, heparin drip Check doppler of lower extremities Consult critical care, monitor hemoglobin IV morphine, DVT prphalaxis Specimen contaminated, repeat urinalysis - Constitutional Vitals: Vital Signs - 12hr 10/07/18 10/07/18 10/08/18 22:00 22:06 00:00 Temperature Pulse Rate 89 78 Blood Pressure 149/98 O2 Sat by Pulse 100 100 Oximetry 10/08/18 10/08/18 10/08/18 02:00 04:00 06:00 Temperature Pulse Rate 76 Blood Pressure O2 Sat by Pulse 100 100 100 Oximetry 10/08/18 08:00 Temperature 98.2 F Pulse Rate 89 Blood Pressure O2 Sat by Pulse 100 Oximetry - Labs CBC & Chem 7: 10/08/18 04:07 10/08/18 04:07 Labs: Abnormal lab results 10/07/18 10/08/18 10/08/18 Range/Units 11:41 04:07 04:07 MCH 27 L (28-32) pg RDW 15.8 H (13.2-15.2) % [place] % (Auto) 14.6 H (0.0-7.3) % [place] # 1.0 H (0.0-0.8) K/mm3 Sodium 135 L (137-145) mmol/L Carbon Dioxide 21 L (22-30) mmol/L Glucose 135 H 113 H (65-100) mg/dL
[2018-10-08] MEDS: NORMODYNE PO SCH (09:22)
[2018-10-08] MEDS: PROCARDIA XL PO SCH (09:22)
[2018-10-08 09:23] VITALS: BP 126/85
[2018-10-08] MEDS: SODIUM CHLORIDE FLUSH SYRINGE 10 ML IV SCH (09:24)
--- NOTE | 2018-10-08 09:25 | Discharge Summary ---
Providers - Providers Date of Admission: 10/07/18 01:56 Date of discharge: 10/08/18 Attending physician: NIKOLAY GUTIÉRREZ 10/07/18 06:33 Consult to Physician [CONS] Routine Comment: initially spoke ans. nevarez, then Dr. Flores aware Consulting Provider: GRANT FLORES Physician Instructions: Dr. 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 She was at [facility] when she felt lightheaded, she checked her blood pressure was 190/130, she comes emergency room for further evaluation. I do [place] department blood pressure was found to be very elevated at 200/132. Cardene drip was commenced. Patient was admitted to the ICU. Nifedipine 30 mg by mouth was also commenced. Mild hypokalemia identified. This was corrected. Blood pressure improved to 134/83. Continued to put dis continued. Patient was continued on by mouth nifedipine. Blood pressure continued to be controlled. Patient denies any headache, chest pain or shortness of breath. I discussed the intermittent probability VQ scan with the radiologist and with it was necessary to get a CT angiogram which is the gold standard to confirm pulmonary embolism. He recommended against getting a CT angiogram of the chest. She will follow be commenced on Eliqis 5mg bid for 6 weeks minutes one by mouth twice a day. She is therefore being discharged today to follow up with her PCP in 3-5 days who will follow up with pulmonary lymphadenopathy was identified on chest x-ray with CT of the chest with contrast. This is more so since the patient just had a V/Q scan with contrast. This was explained to the patient who expressed understanding Disposition: DC- TO HOME OR SELFCARE Time spent for discharge: 40 mins - Discharge Diagnoses (1) Hypertensive emergency Status: Acute (2) Pulmonary embolism Status: Acute Core Measure Documentation - Palliative Care Palliative Care/ Comfort Measures: Not Applicable - Core Measures Any of the following diagnoses?: DVT/PE, none - VTE Discharge Requirements Deep Vein Thrombosis/Pulmonary Embolism Present on Admission: Yes Has pt received <5 days of overlap therapy or INR<2.0: Yes Anticoagulant overlap therapy prescribed at discharge: Yes Exam - Physical Exam Narrative exam: Constitutional: Well-nourished well-developed. In no distress Head: Normocephalic atraumatic Eyes: Pupils are equal round and reactive to light Nose: No enlarged turbinates, no septal deviation. Mouth: Moist mucous membranes. Neck: Supple no thyromegaly. No bruit. No JVD Heart: Regular rate and rhythm, S1-S2 normal. No rubs murmurs or gallop Lungs: Clear to auscultation bilaterally. no rales or rhonchi Abdomen: Soft, nontender. Bowel sound are present. Extremities: No edema, no cyanosis, no clubbing. Neuro: Alert oriented Oriented x3. No focal sensory or motor deficit. Skin: No rashes or hyperpigmented spots Musculoskeletal system: No joint pain or swelling Hematological: No petechia or subcutanous hemorrhages. Immunological: No multiple septic spots on the skin Lymphatic: No generalized lymphadenopathy Psychiatry: Euthymic. Calm. - Constitutional Vitals: Temp Pulse Resp BP Pulse Ox 98.2 F 89 16 149/98 100 10/08/18 08:00 10/08/18 08:00 10/07/18 10:00 10/07/18 22:06 10/08/18 08:00 Plan Activity: fall precautions Weight Bearing Status: Weight Bear as Tolerated Diet: regular Follow up with: PRIMARY CARE, [Primary Care Provider] - 3-5 Days Prescriptions: Apixaban [Eliquis] 5 mg PO BID #60 tablet Ferrous Sulfate [Feosol 325 MG tab] 325 mg PO BID #60 tablet Labetalol [Labetalol 200mg TAB] 200 mg PO BID #60 tablet NIFEdipine XL [Procardia Xl] 30 mg PO QDAY #30 tablet
[2018-10-08] MEDS ORDERED: K-DUR PO SCH (10:00)
--- NOTE | 2018-10-08 12:29 | Progress Note ---
Assessment and Plan 23 y/o female with hypertensive emergency. 1. Continue home medications 2. NOt on control, no other risk factors for PE. Since unable to do CTA, if dopplers negative will stop heparin drip. 3. No objection to discharge. Subjective Date of service: 10/08/18 Principal diagnosis: Hypertensive emergency, PE Interval history: Better today. Of heparin drip. Discharging today per IMS notes. Objective - Constitutional Vitals: Vital Signs - 12hr 10/08/18 10/08/18 10/08/18 02:00 04:00 06:00 Temperature Pulse Rate 76 Blood Pressure O2 Sat by Pulse 100 100 100 Oximetry 10/08/18 10/08/18 08:00 09:22 Temperature 98.2 F Pulse Rate 89 104 H Blood Pressure 126/85 O2 Sat by Pulse 100 Oximetry - Labs CBC & Chem 7: 10/08/18 04:07 10/08/18 04:07 Labs: Abnormal lab results 10/08/18 10/08/18 Range/Units 04:07 04:07 MCH 27 L (28-32) pg RDW 15.8 H (13.2-15.2) % [place] % (Auto) 14.6 H (0.0-7.3) % [place] # 1.0 H (0.0-0.8) K/mm3 Sodium 135 L (137-145) mmol/L Carbon Dioxide 21 L (22-30) mmol/L Glucose 113 H (65-100) mg/dL Medications & Allergies - Medications Allergies/Adverse Reactions: Allergies Iodine and Iodide Containing Produc Allergy (Verified 05/17/17 09:49) Shortness of Breath Shellfish Allergy (Uncoded 05/17/17 09:49) Anaphylaxis Home Medications: Home Medications Medication Instructions Recorded Confirmed Last Taken Type Vit Calc,Iron,Folic 1 each PO DAILY #30 tablet 05/17/17 10/07/18 Unknown Rx [ Vitamins] Apixaban [Eliquis] 5 mg PO BID #60 tablet 10/08/18 Unknown Rx Ferrous Sulfate [Feosol 325 MG tab] 325 mg PO BID #60 tablet 10/08/18 Unknown Rx Labetalol [Labetalol 200mg TAB] 200 mg PO BID #60 tablet 10/08/18 Unknown Rx NIFEdipine XL [Procardia Xl] 30 mg PO QDAY #30 tablet 10/08/18 Unknown Rx
== END 2018-10-08 11:39 | disposition home or self-care (01) | DRG 176 ==
LOC: ED 19:33 → CC1 10-07 01:56
PROVIDERS: ADMIT Internal Medicine; ATTEND Family Medicine
DX: I26.99 Other pulmonary embolism without acute cor pulmonale (principal); I16.0 Hypertensive urgency; E87.6 Hypokalemia; I10 Essential (primary) hypertension; I16.1 Hypertensive emergency; Z91.013 Allergy to seafood; Z91.041 Radiographic dye allergy status; Z82.49 Family history of ischemic heart disease and other diseases of the circulatory system; Z83.3 Family history of diabetes mellitus; Z91.19 Patient's noncompliance with other medical treatment and regimen
CPT/HCPCS: 36415; 70450; 71046; 78582; 80048; 81001; 84484; 84703; 85025; 85027; 85379; 85520; 85610; 85730; 87086; 93005; 93010; 93970; 99406; G0378; A9540; A9558; J0360; J1644; J2270; J7050

== ENCOUNTER 2018-12-23 20:16 | Emergency (ER) | payer SELFPAY ==
[2018-12-23 20:58] VITALS: BP 195/132
--- NOTE | 2018-12-23 20:58 | Event Note ---
ED Screening Note Date of service: 12/23/18 Time: 20:55 ED Screening Note: Pt complains of headache and chest pain x 3 days 8/10 headache states chest pain worsens with deep breathing; denies OCPs, leg pain/swelling, or long travel +Asthma, +smoker +dry cough This initial assessment/diagnostic orders/clinical plan/treatment(s) is/are subject to change based on patients health status, clinical progression and re- assessment by fellow clinical providers in the ED. Further treatment and workup at subsequent clinical providers discretion. Patient/guardian urged not to elope from the ED as their condition may be serious if not clinically assessed and managed. Initial orders include: labs CXR
[2018-12-23 21:25] LABS: Hemoglobin 11.2 gm/dl (10.1-14.3); Mean Corpuscular HGB Conc 32 % (30-34); Mean Corpuscular Volume 77 fl (79-97); Platelet Count 407 K/mm3 (140-440); Red Blood Count 4.53 M/mm3 (3.65-5.03); Red Cell Distribution Width 17.3 % (13.2-15.2)
[2018-12-23 21:36] LABS: BUN/Creatinine Ratio 9; Blood Urea Nitrogen 7 mg/dL (7-17); Calcium 9.5 mg/dL (8.4-10.2); Hemolysis Index 2
[2018-12-23] MEDS ORDERED: KETOROLAC 30 MG/1 ML INJ IM ONE (22:57)
[2018-12-23] MEDS ORDERED: ONDANSETRON 4 MG ODT TAB PO ONE (22:57)
[2018-12-23] MEDS ORDERED: BUTALB/ACETAMINOPHEN/CAFFEINE TAB PO ONE (22:57)
--- NOTE | 2018-12-24 01:14 | XRay Report ---
CHEST 2 VIEWS INDICATION / CLINICAL INFORMATION: chest pain. COMPARISON: Chest radiograph 10/06/2018 FINDINGS: SUPPORT DEVICES: None. HEART / MEDIASTINUM: Bilateral hilar enlargement is unchanged compared with prior examination. LUNGS / PLEURA: No significant pulmonary or pleural abnormality. No pneumothorax. ADDITIONAL FINDINGS: No significant additional findings. IMPRESSION: 1. No acute cardiopulmonary abnormality identified. 2. No significant change of bilateral hilar enlargement. This may represent adenopathy versus dilated pulmonary arteries in the setting of pulmonary arterial hypertension. This could be further evaluate d with contrast-enhanced CT of the chest. Signer Name: Lucero Rasheed MD Signed: 12/23/2018 11:10 PM Workstation Name: [id number]
[2018-12-24] MEDS ORDERED: cloNIDine 0.2 MG TAB ONE (02:16)
--- NOTE | 2018-12-24 02:23 | Emergency Department Report ---
ED Headache HPI - General Chief Complaint: Headache Stated Complaint: HEAD/CX PAIN Time Seen by Provider: 12/23/18 20:55 Source: patient Exam Limitations: no limitations - History of Present Illness Initial Comments: Patient is a 23-year-old -[place] female with a history of hypertension and PE who presents to the ED with complaint of acute onset persistent severe frontal and sinus pressure, headache, nasal and sinus congestion, sore throat and dry cough for the last 1 week. Patient denies fever, chills, nausea, vomiting, diarrhea, abdominal pain, shortness of breath, chest pain, change in vision, syncope, palpitations or seizures. Patient states that she ran out of her medications for blood pressure about 2 weeks ago and therefore has not been able to take any medication for blood pressure. Timing/Duration: 1 week, constant, waxing and waning Quality: severe, constant, sharp, throbbing Head Injury Location: global Recent Head Trauma: no recent headache/trauma Modifying Factors: improves with: other (Ran out of her blood pressure medications) Associated Symptoms: denies symptoms, nasal congestion, nasal drainage, sinus infection. denies: confusion, fatigue, facial pain, fever/chills, flushing, loss of consciousness, nausea/vomiting, numbness in legs/feet, rash, seizures, stiff neck, vision changes, weakness, other Allergies/Adverse Reactions: Allergies Iodine and Iodide Containing Produc Allergy (Verified 05/17/17 09:49) Shortness of Breath Shellfish Allergy (Uncoded 05/17/17 09:49) Anaphylaxis Home Medications: Ambulatory Orders Vit Calc,Iron,Folic [ Vitamins] 1 each PO DAILY #30 tablet 05/17/17 Ferrous Sulfate [Feosol 325 MG tab] 325 mg PO BID #60 tablet 10/08/18 Amoxicillin/Potassium Clav [Augmentin 875-125 Tablet] 1 each PO Q12H #20 tablet 12/24/18 Apixaban [Eliquis] 5 mg PO BID #60 tablet 12/24/18 Butalb/Acetamin/Caff 50-325-40 [Fioricet 50-325-40] 1 each PO Q4H PRN #12 tablet 12/24/18 Labetalol [Labetalol 200mg TAB] 200 mg PO BID #60 tablet 12/24/18 NIFEdipine XL [Procardia Xl] 30 mg PO QDAY #30 tablet 12/24/18 ED Review of Systems ROS: Stated complaint: HEAD/CX PAIN Other details as noted in HPI Constitutional: denies: chills, fever Eyes: denies: eye pain, eye discharge, vision change ENT: throat pain, congestion. denies: ear pain Respiratory: cough. denies: shortness of breath, wheezing Cardiovascular: denies: chest pain, palpitations Endocrine: no symptoms reported Gastrointestinal: denies: abdominal pain, nausea, diarrhea Genitourinary: denies: urgency, dysuria, discharge Musculoskeletal: denies: back pain, joint swelling, arthralgia Skin: denies: rash, lesions Neurological: headache. denies: weakness, paresthesias Psychiatric: denies: anxiety, depression Hematological/Lymphatic: denies: easy bleeding, easy bruising ED Past Medical Hx - Past Medical History Hx Hypertension: No Hx Congestive Heart Failure: No Hx Diabetes: No Hx Deep Vein Thrombosis: No Hx Renal Disease: No Hx Sickle Cell Disease: No Hx Seizures: No Hx Asthma: Yes (EXERCISE INDUCED) Hx COPD: No Hx HIV: No Additional medical history: PCO - Surgical History Additional Surgical History: X2 - Social History Smoking Status: Current Every Day Smoker Substance Use Type: Alcohol - Medications Home Medications: Home Medications Medication Instructions Recorded Confirmed Last Taken Type Vit Calc,Iron,Folic 1 each PO DAILY #30 tablet 05/17/17 10/07/18 Unknown Rx [ Vitamins] Ferrous Sulfate [Feosol 325 MG tab] 325 mg PO BID #60 tablet 10/08/18 Unknown Rx Amoxicillin/Potassium Clav 1 each PO Q12H #20 tablet 12/24/18 Unknown Rx [Augmentin 875-125 Tablet] Apixaban [Eliquis] 5 mg PO BID #60 tablet 12/24/18 Unknown Rx Butalb/Acetamin/Caff 50-325-40 1 each PO Q4H PRN #12 tablet 12/24/18 Unknown Rx [Fioricet 50-325-40] Labetalol [Labetalol 200mg TAB] 200 mg PO BID #60 tablet 12/24/18 Unknown Rx NIFEdipine XL [Procardia Xl] 30 mg PO QDAY #30 tablet 12/24/18 Unknown Rx ED Physical Exam - General Limitations: No Limitations General appearance: alert, in no apparent distress - Head Head exam: Present: atraumatic, normocephalic, normal inspection - Eye Eye exam: Present: normal appearance, PERRL, EOMI Pupils: Present: normal accommodation - ENT ENT exam: Present: normal orophraynx, mucous membranes moist, TM's normal bilaterally, normal external ear exam, other (grossly congested nasal passages; palpable tenderness of the frontal and maxillary sinuses) - Neck Neck exam: Present: normal inspection, full ROM - Respiratory Respiratory exam: Present: normal lung sounds bilaterally. Absent: respiratory distress, wheezes, rales, rhonchi, stridor, chest wall tenderness, accessory muscle use, decreased breath sounds - Cardiovascular Cardiovascular Exam: Present: regular rate, normal rhythm, normal heart sounds. Absent: systolic murmur, diastolic murmur, rubs, gallop - GI/Abdominal GI/Abdominal exam: Present: soft, normal bowel sounds. Absent: tenderness - Extremities Exam Extremities exam: Present: normal inspection, normal capillary refill - Back Exam Back exam: Present: normal inspection, full ROM - Neurological Exam Neurological exam: Present: alert, oriented X3, CN II-XII intact, normal gait, reflexes normal - Psychiatric Psychiatric exam: Present: normal affect, normal mood - Skin Skin exam: Present: warm, dry, intact, normal color. Absent: rash ED Course Vital Signs 12/23/18 20:55 Temperature 98.6 F Pulse Rate 103 H Respiratory 18 Rate Blood Pressure 195/132 O2 Sat by Pulse 98 Oximetry ED Medical Decision Making - Lab Data Result diagrams: 12/23/18 21:11 12/23/18 21:11 - Radiology Data Radiology results: report reviewed, image reviewed Chest x-ray shows no acute cardiopulmonary abnormalities or pneumonitis. - Medical Decision Making This is a 23-year-old female who presented to the ED with cough and of acute onset persistent severe frontal headache, nasal and sinus congestion, dry cough and sore throat for one week. Patient states that she ran out of medications ov er 2 weeks ago for blood pressure and therefore she suspected that her blood pressure may have been elevated because of failure to take blood pressure medications. In the ED, patient is alert and oriented 3 and is not in distress but appears to be in pain. Vital signs show hypertension but is otherwise stable. Patient was treated for pain in the ED. Lab test results were reviewed and are all nonactionable. Chest x-ray shows no acute cardiopulmonary abnormalities or pneumonitis. On reevaluation, patient's pain is well controlled with medications, and hypertension improved. Patient was discharged home with all that he feels on medications and also given a prescription for antibiotic for acute sinusitis. Patient was advised to follow-up at [facility] in 5-7 days for reevaluation or return to the ED immediately if symptoms get worse. - Differential Diagnosis Sinusitis; sinus headache; uncontrolled HTN; Pneumonia Critical care attestation.: If time is entered above; I have spent that time in minutes in the direct care of this critically ill patient, excluding procedure time. ED Disposition Clinical Impression: Acute upper respiratory infection, Uncontrolled stage 2 hypertension Acute frontal sinusitis Qualifiers: Recurrence: not specified as recurrent Qualified Code(s): J01.10 - Acute f rontal sinusitis, unspecified Disposition: TO HOME OR SELFCARE Is pt being admited?: No Does the pt Need Aspirin: No Condition: Stable Instructions: Hypertension (ED) Additional Instructions: Take medications with food, drink plenty of fluids and follow-up with your primary care physician in 7-10 days for reevaluation. Return to the ED im mediately if symptoms get worse. Prescriptions: Amoxicillin/Potassium Clav [Augmentin 875-125 Tablet] 1 each PO Q12H #20 tablet Apixaban [Eliquis] 5 mg PO BID #60 tablet Butalb/Acetamin/Caff 50-325-40 [Fioricet 50-325-40] 1 each PO Q4H PRN #12 tablet PRN Reason: Headache Labetalol [Labetalol 200mg TAB] 200 mg PO BID #60 tablet NIFEdipine XL [Procardia Xl] 30 mg PO QDAY #30 tablet Referrals: PRIMARY CARE, [Primary Care Provider] - 3-5 Days Time of Disposition: : Print Language: POLISH
== END 2018-12-24 02:52 | disposition home or self-care (01) ==
LOC: ED 20:16
DX: J01.10 Acute frontal sinusitis, unspecified (principal); J06.9 Acute upper respiratory infection, unspecified; I10 Essential (primary) hypertension; J45.909 Unspecified asthma, uncomplicated; F17.200 Nicotine dependence, unspecified, uncomplicated; Z91.041 Radiographic dye allergy status; Z91.013 Allergy to seafood
CPT/HCPCS: 36415; 71046; 80048; 84484; 84703; 85027; J1885; 96372; Q0162